=== PATIENT | female | born 1940 | race Caucasian/White ===

== ENCOUNTER 2022-12-15 17:04 | Emergency (ER) | payer OTHER, SELFPAY ==
[2022-12-15 17:12] VITALS: BP 176/70; PULSE 91; RESP 18; TEMP 36.4; O2SAT 98
[2022-12-15 17:14] VITALS: BP 176/70; PULSE 91; RESP 18; TEMP 36.4; O2SAT 98
--- NOTE | 2022-12-15 17:17 | ED.GENADULT ---
HPI - General Adult General Chief complaint: Extremity Injury, Lower Stated complaint: Rt Hip Pain Time Seen by Provider: 12/15/22 17:17 Source: patient Mode of arrival: ambulatory Limitations: no limitations History of Present Illness HPI narrative: 81-year-old female presents with complaint of 1 week of pain to right buttock. Saw her primary care physician 5 days ago and was given prednisone 40 mg. Patient reports no change to pain after taking prednisone. Also taking Tylenol but only when pain is really bad . Patient not doing any stretches or ice or heat therapy. Ambulatory with steady gait. States if she bends forward it takes the pressure off her right buttock and decreases pain. No radiation of pain to right lower extremity. No weakness or numbness to right lower extremity. Patient originally did not feel that pain was related to sciatica and was diagnosed with sacroiliitis at her primary care physician office. Patient now thinks because if she pulls up on her right buttock or bends forward and it relieves the pain she has a pinched nerve. No loss of bowel or bladder. No urinary symptoms. All systems reviewed and negative except as noted above. Related Data Home Medications Medication Instructions Recorded Confirmed naproxen sodium 220 mg tablet 220 mg PO ONCE PRN Pain 05/24/21 12/15/22 (Aleve) Allergies Allergy/AdvReac Type Severity Reaction Status Date / Time lisinopril AdvReac Intermediate cough Verified 12/15/22 17:12 Review of Systems Review of Systems: CONSTITUTIONAL: Denies fever, chills, or sweats. EYES: Denies visual changes, redness, or discharge. ENT: Denies rhinorrhea, congestion, sore throat, or otalgia. CARDIOVASCULAR: Denies chest pain, palpitations, or edema. RESPIRATORY: Denies cough or dyspnea. GASTROINTESTINAL: Denies abdominal pain, nausea, vomiting, or diarrhea. GENITOURINARY: Denies dysuria or hematuria. SKIN: Denies rash or itching. MUSCULOSKELETAL: Denies back pain, or myalgia. Reports pain to right buttock. NEUROLOGIC: Denies headache, numbness, or weakness. PSYCHIATRIC: Denies anxiety or depression. All other systems reviewed are negative, except as documented in HPI. [facility] Past Medical History Medical History Abnormal colonoscopy 04/16 Tubular adenoma Repeat 04/21 History of gastric ulcer 2015, bleeding Surgical History Surgical History History of cataract surgery 2006 History of hysterectomy, supracervical 2018 History of tonsillectomy Family History Family History Father Diabetes mellitus Mother Diabetes mellitus Other Hypertension Social History Social History Smoking status: Never smoker Second hand tobacco smoke exposure: No Alcohol intake: current Drinks per week: 1 Substance use: never Substance use type: does not use Living arrangements: with family Occupation/Education: retired Gender identity (if verbalized by the patient): Female Sexual Orientation (if Verbalized by the Patient): Straight or Heterosexual Spiritual care concerns: No Agree to blood products: Yes Comments At time of signature, agree with nursing past medical, surgical, social and family history. There is no relevant family history pertinent to the presenting complaint. Exam Narrative: GENERAL: This is a well-nourished, well-developed patient, in no apparent distress. HEAD: normocephalic, atraumatic. EYES: PERRL. Sclera clear/white. Vision is grossly intact. EARS: External ears normal NOSE: External nose normal NECK: Neck supple, non-tender without lymphadenopathy, masses or thyromegaly. CARDIOVASCULAR: Regular rate and rhythm without murmurs, gallops, or rubs. RESPIRATORY: Clear to auscultation. Breath
[2022-12-15] MEDS: KETOROLAC 30 MG/ML VIAL (*BKC) IM (17:45)
== END 2022-12-15 17:55 | disposition home or self-care (01) ==
PROVIDERS: Emergency Provider Nurse Practitioner Family; PCP Family Medicine Adolescent Medicine
DX: M54.31 Sciatica, right side (principal)
CPT/HCPCS: 96372; 99213; G0463; J1885

== ENCOUNTER 2023-01-25 11:11 | Outpatient (CLI) | payer OTHER, SELFPAY ==
--- NOTE | ~2023-01-25 | XR_ITS ---
EXAMINATION: XR hip RT 2V w AP pelvis DATE: 01/25/2023 11:33 INDICATION: Right hip pain TECHNIQUE: AP view the pelvis and two views of right hip were obtained. COMPARISON: None. FINDINGS: Bone alignment is normal. There is no fracture. There is mild osteoarthritis of the hips. C holelithiasis is noted. IMPRESSION: 1. No acute osseous abnormality. Reviewed, dictated and finalized at location F.
--- NOTE | ~2023-01-25 | XR_ITS ---
EXAMINATION: XR lumbar spine 2-3V DATE: 01/25/2023 11:33 INDICATION: Low back pain TECHNIQUE: Anteroposterior and lateral views of the lumbar spine, and cone-down lateral view of the l umbosacral junction were obtained. COMPARISON: None. FINDINGS: There are 12 degrees of lumbar dextroscoliosis. Bone alignment is normal. There is mild los s of vertebral body height at L3. There is mild loss of intervertebral disc space height throughout t he lumbar spine. Small degenerative osteophytes project from the anterior endplates of multiple verte bral bodies. There is mild facet joint osteoarthritis of the lower lumbar spine. Cholelithiasis is no shayan. IMPRESSION: 1. Mild loss of vertebral body height at L3 which could reflect age-indeterminate compression fractur e. Reviewed, dictated and finalized at location F. IMPRESSION: 1. Mild loss of vertebral body height at L3 which could reflect age-indetermina te compression fracture.
== END 2023-01-25 11:12 | disposition home or self-care (01) ==
PROVIDERS: PCP Family Medicine Adolescent Medicine; Visit Provider Nurse Practitioner Family
DX: M54.50 Low back pain, unspecified (principal); G89.29 Other chronic pain; R29.890 Loss of height; M25.551 Pain in right hip
CPT/HCPCS: 72100; 73502